=== PATIENT | female | born 1945 | race Caucasian/White ===

== ENCOUNTER → 2024-12-29 15:08 | Outpatient (CLI) | payer MEDICARE, OTHER, SELFPAY ==
[2024-12-29 15:50] LABS: Add Manual Diff / Slide Review NO; Basophils Absolute Auto 0 /uL (0-100); Basophils Percent Auto 0.3 % (0-2); Eosinophils Absolute Auto 100 /uL (0-450); Eosinophils Percent Auto 1.2 % (2-4); Hemoglobin 12.3 g/dL (12.0-16.0); Lymphocytes Absolute Auto 900 /uL (1100-4500); Lymphocytes Percent Auto 8.7 % (25-40); Mean Corpuscular HGB Conc 34.3 % (30-36); Mean Corpuscular Hemoglobin 33.3 PG (26-34); Mean Corpuscular Volume 97.1 fL (80-100); Monocytes Absolute Auto 800 /uL (0-900); Monocytes Percent Auto 7.8 % (3-14); Neutrophils Absolute Auto 8900 /uL (1500-7000); Platelet Count 319 X10^3/uL (150-400); Red Blood Cell Count 3.71 X10^6/uL (4.0-5.2); White Blood Cell Count 10.8 X10^3/uL (4.5-11.0)
[2024-12-29 16:16] LABS: Alanine Aminotransferase 46 IU/L (<35); Albumin 4.3 g/dL (3.5-5.0); Albumin Globulin Ratio 1.7 (1.0-2.8); Alkaline Phosphatase 152 U/L (38-126); Aspartate Aminotransferase 56 IU/L (14-36); BUN Creatinine Ratio 16.3 (6-22); Bilirubin Total 0.6 mg/dL (0.2-1.3); Blood Urea Nitrogen 16 mg/dL (7-17); Calcium 9.6 mg/dL (8.4-10.2); Carbon Dioxide 26 mmol/L (22-32); Chloride 100 mmol/L (98-107); Estimated Glomerular Filt Rate 59 mL/min (>60); Globulin 2.6 g/dL (1.7-4.1); Glucose 124 mg/dL (70-99); HEMOLYSIS < 15 (0-50); Magnesium 1.3 mg/dL (1.6-2.3); Potassium 4.3 mmol/L (3.4-5.1); Sodium 137 mmol/L (137-145); Total Protein 6.9 g/dL (6.3-8.2)
[2024-12-29 16:46] LABS: TSH w/ Reflex to FT4 1.37 uIU/mL (0.47-4.68)
[2024-12-29 17:03] LABS: Vitamin B12 715 pg/mL (239-931)
[2024-12-29 19:23] LABS: Hep C Virus Ab w/Reflex Quant NEGATIVE s/c (NEGATIVE)
== END ==
PROVIDERS: PCP Family Medicine; Referring Provider Physician Assistant; Visit Provider Physician Assistant
DX: R19.5 Other fecal abnormalities (principal); K52.9 Noninfective gastroenteritis and colitis, unspecified; F10.90 Alcohol use, unspecified, uncomplicated
CPT/HCPCS: 36415; 80053; 82607; 83735; 84443; 85025; 86803